=== PATIENT | female | born 1990 ===

== ENCOUNTER 2017-09-02 11:59 | Outpatient (CLI) | payer OTHER | END 2017-09-02 12:42 | disposition home or self-care (01) | LOC: NST 11:59 | DX: Z34.83 Encounter for supervision of other normal pregnancy, third trimester (principal) ==

== ENCOUNTER 2017-09-23 07:57 | Outpatient (CLI) | payer OTHER | END 2017-09-23 08:38 | disposition home or self-care (01) | LOC: NST 07:57 | DX: Z34.83 Encounter for supervision of other normal pregnancy, third trimester (principal) ==

== ENCOUNTER 2017-09-30 08:57 | Outpatient (CLI) | payer OTHER | END 2017-09-30 09:44 | disposition home or self-care (01) | LOC: NST 08:57 | DX: Z34.83 Encounter for supervision of other normal pregnancy, third trimester (principal) ==

== ENCOUNTER 2017-10-07 09:25 | Inpatient (IN) | payer OTHER ==
[~2017-10-07] VITALS: Ht 160 cm; Wt 68.0 kg
[2017-10-07] MEDS ORDERED: PRENATAL TABLE1 EAC1 PO (11:05)
[2017-10-07] MEDS ORDERED: PRENATAL TABLE1 EAC1 (11:05)
[2017-10-07] MEDS ORDERED: LABETALOL HCL200 MG PO (11:06)
[2017-10-07] MEDS ORDERED: ZANTAC150 MG PO (11:07)
== END 2017-10-10 14:22 | DRG 766 ==
LOC: LDR 09:25 → SURG-SUITE 20:24
PROVIDERS: Obstetrics & Gynecology
PROC: 0UL70ZZ Occlusion of Bilateral Fallopian Tubes, Open Approach (ICD-10-PCS; 2017-10-07)
PROC: 10907ZC Drainage of Amniotic Fluid, Therapeutic from Products of Conception, Via Natural or Artificial Opening (ICD-10-PCS; 2017-10-07)
PROC: 4A033R1 Measurement of Arterial Saturation, Peripheral, Percutaneous Approach (ICD-10-PCS; 2017-10-07)
PROC: 4A1HXCZ Monitoring of Products of Conception, Cardiac Rate, External Approach (ICD-10-PCS; 2017-10-07)
PROC: 10D00Z1 Extraction of Products of Conception, Low, Open Approach (ICD-10-PCS; principal; 2017-10-07 17:00)
DX: O60.14X0 Preterm labor third trimester with preterm delivery third trimester, not applicable or unspecified (principal); O14.14 Severe pre-eclampsia complicating childbirth; Z3A.36 36 weeks gestation of pregnancy; Z37.0 Single live birth; Z30.2 Encounter for sterilization